=== PATIENT | female | born 1955 | race Caucasian/White ===

== ENCOUNTER 2020-04-08 07:11 | Outpatient (REF) | payer BC, SELFPAY | END 2020-04-08 07:12 | disposition home or self-care (01) | LOC: HO.LAB 07:11 | PROVIDERS: Visit Provider Internal Medicine | DX: Z20.828 Contact with and (suspected) exposure to other viral communicable diseases (principal) | CPT/HCPCS: C9803; U0003 ==

== ENCOUNTER 2020-10-15 09:51 | Day surgery (SDC) | payer BC, SELFPAY ==
[2020-10-10 14:04] VITALS: BMI 19.8
[2020-10-10 14:26] VITALS: BMI 19.8
--- NOTE | 2020-10-11 08:19 | HO.ANESPROP2 ---
HPI - Anesthesia Eval Consult details Narrative: 64yo F for Colonoscopy PMFSH Past Medical History Medical History Asthma COVID-19 vaccine administered Thyroid disease Surgical History Surgical History H/O colonoscopy Hx of laparoscopy Social History Social History Are you a primary customer care coordinator to a significant other at home: No Do you presently have visiting nurse or other home services: No Patient Tobacco Use Status: Never used Tobacco Use of substances other than those prescribed or required for medical reasons: No Have you been hit, kicked, punched, or otherwise hurt by someone within the past year? If so, by whom?: No Are you DNR?: No Advance Directives: Yes Advance Directives Information Provided: No Advance Directives on File: No (to bring 10/15) Advance Directives Date on File: 10/15/20 Recently lost weight without trying: No Nutrition Risks: Acute nausea or vomiting x1 week Poor oral hygiene: No Meds Allergies Allergy/AdvReac Type Severity Reaction Status Date / Time erythromycin base Allergy Severe severe Verified 10/15/20 10:01 [Erythromycin Base] stomach pain Penicillins Allergy Unknown childhood Verified 10/15/20 10:01 allergy-reaction unknown Home Medications Medication Instructions Recorded Confirmed Last Taken Type Caltrate 600 plus D 1 tab PO DAILY 10/10/20 10/10/20 Unknown History albuterol sulfate [Ventolin HFA] 2 puff INHALATION Q4-6H PRN 10/10/20 10/10/20 Unknown History ascorbic acid (vitamin C) [Vitamin 500 mg PO DAILY 10/10/20 10/10/20 Unknown History C] multivitamin 1 tab PO DAILY 10/10/20 10/10/20 Unknown History vitamin E 400 unit PO DAILY 10/10/20 10/10/20 Unknown History zinc 1 tab PO DAILY 10/10/20 10/10/20 Unknown History Exam Exam Date and Time: October 11, 202019 Height,Weight and Vital Signs: Height 5 ft 3 in Weight 50.802 kg Assessment and Plan Assessment Anesthesia Assessment: Chart Reviewed
[2020-10-15 10:09] VITALS: BP 131/76; PULSE 70; RESP 16; TEMP 36.5; O2SAT 99
[2020-10-15] MEDS: Lactated Ringers 1,000 ML 100 ML IVCONT (10:20)
--- NOTE | 2020-10-15 10:41 | HO.ANESPROP2 ---
[facility] Past Medical History Medical History Asthma COVID-19 vaccine administered Thyroid disease Surgical History Surgical History H/O colonoscopy Hx of laparoscopy Social History Social History Are you a primary janitor caretaker to a significant other at home: No Do you presently have visiting nurse or other home services: No Patient Tobacco Use Status: Never used Tobacco Use of substances other than those prescribed or required for medical reasons: No Have you been hit, kicked, punched, or otherwise hurt by someone within the past year? If so, by whom?: No Are you DNR?: No Advance Directives: Yes Advance Directives Information Provided: No Advance Directives on File: No (to bring 10/15) Advance Directives Date on File: 10/15/20 Recently lost weight without trying: No Nutrition Risks: Acute nausea or vomiting x1 week Poor oral hygiene: No Meds Allergies Allergy/AdvReac Type Severity Reaction Status Date / Time erythromycin base Allergy Severe severe Verified 10/15/20 10:01 [Erythromycin Base] stomach pain Penicillins Allergy Unknown childhood Verified 10/15/20 10:01 allergy-reaction unknown Active Medications: Current Medications Generic Name Dose Route Start Last Admin Trade Name Diane PRN Reason Stop Dose Admin Albuterol Sulfate 2.5 mg 10/15/20 09:52 Albuterol Sulfate (0.083%) 2.5 Mg/3 Ml Vial.Neb INHALE ONCE PRN Shortness of Breath/Wheezing Lactated Ringer's 1,000 mls @ 100 mls/hr 10/15/20 10:00 10/15/20 10:20 Lr IVCONT 100 mls/hr .Q10H SOHAN Administration Home Medications Medication Instructions Recorded Confirmed Last Taken Type albuterol sulfate [Ventolin HFA] 2 puff INHALATION Q4-6H PRN 10/10/20 10/10/20 Unknown History ascorbic acid (vitamin C) [Vitamin 500 mg PO DAILY 10/10/20 10/10/20 Unknown History C] calcium carbonate-vitamin D3 1 tab PO DAILY 10/10/20 10/10/20 Unknown History [Caltrate 600 plus D] multivitamin 1 tab PO DAILY 10/10/20 10/10/20 Unknown History vitamin E 400 unit PO DAILY 10/10/20 10/10/20 Unknown History zinc 1 tab PO DAILY 10/10/20 10/10/20 Unknown History Exam Exam Date and Time: October 15, 2020 1041 Height,Weight and Vital Signs: Height 5 ft 3 in Weight 50.802 kg Last Vital Signs Temp 97.7 F 10/15/20 10:09 Pulse 70 10/15/20 10:09 Resp 16 10/15/20 10:09 BP 131/76 10/15/20 10:09 Pulse Ox 99 10/15/20 10:09 Airway Mallampati Class: II TM Dist: >3cm Neck ROM: Full Loose/Missing/Broken Teeth: No Heart: RRR Lungs: CTA Assessment and Plan Assessment Anesthesia Assessment: Anesthesia Plan Discussed and Chart Reviewed Final Anesthetic Review NPO: Yes ASA Class: II Final Preanesthetic Review: Meds/Allgs Chart Reviewed, Consent Obtained/Reviewed and Anes Risks/Benef Reviewed Patient Risk: Low Procedure Risk: Low Anesthetic Plan Anesthetic Plan: MAC: Disposition: Standard PACU
--- NOTE | 2020-10-15 10:44 | P.HPSUR_ITS ---
Pre-Procedural Eval Section A Date of Service: 10/15/20 The patient is an INPATIENT: No Section B Chief Complaint: screening Details of Present Illness: see H&P no changes Relevant Social History: None Present Medications: see Short Stay Collaborative assessment Medical History: No relevant PMH History of Previous Operations: No relevant previous surgery Allergies: Allergies Allergy/AdvReac Type Severity Reaction Status Date / Time erythromycin base Allergy Severe severe Verified 10/15/20 10:01 [Erythromycin Base] stomach pain Penicillins Allergy Unknown childhood Verified 10/15/20 10:01 allergy-reaction unknown Review of Systems Sugical H&P ROS: Negative: Constitution, Cardiovascular, Respiratory, Neurological, Psychiatric, Hem-Onc, Allergic/Immunologic, Gastrointestinal, Gen itourinary, Musculoskeletal, Integumentary, Endocrine and Eyes/Ears/Nose/Throat Exam Surgical H&P Exam: Normal: HEENT, Normal: Heart, Normal: Lungs, Normal: Extremities, Normal: Abdomen, Normal: Skin and Normal: Neurological Plan Diagnosis/Plan: Unchanged I have reviewed the history and physical and performed a pertinent physical examination on my patient. No changes have occurred unless specified.
[2020-10-15 11:12] VITALS: BP 121/46; PULSE 61; RESP 16; TEMP 36.2; O2SAT 100
--- NOTE | 2020-10-15 11:19 | PM.OP ---
Brief Operative Note Date of Service: 10/15/20 Pre-op diagnosis: screening Post-op diagnosis: same (colon polyp) Procedure: colonosocpy Surgeon: Daniel Hawkins Anesthesia: MAC Was an Sales Enablement Analyst used for this Procedure?: No Estimated blood loss (mL): 0 Pathology: other (polyp x1) Condition: stable Disposition: PACU
[2020-10-15 11:27] VITALS: BP 124/50; PULSE 58; RESP 16; TEMP 36.2; O2SAT 100
--- NOTE | 2020-10-15 12:25 | OP_ITS ---
SURGEON: Daniel Hawkins MD INDICATIONS: Colon cancer screening. PREOPERATIVE DIAGNOSIS: POSTOPERATIVE DIAGNOSIS: PROCEDURE PERFORMED: Colonoscopy to the terminal ileum with snare polypectomy. ESTIMATED BLOOD LOSS: COMPLICATIONS: ANESTHESIA: ASSISTANTS: SPECIMENS: MEDICATIONS: Monitored anesthesia care. DESCRIPTION OF PROCEDURE: History and physical performed. The risks and benefits of the procedure were explained to the patient. Informed consent was obtained. The patient was placed in the left lateral decubitus position. A digital rectal exam was performed and was found to be normal. The Olympus pediatric video colonoscope was introduced into the rectum and advanced to the cecum without difficulty. The cecum was identified by transillumination, palpation, and identification of ileocecal valve. Examination was performed and the scope was removed. She tolerated the procedure well and was taken to recovery area in stable condition. FINDINGS: The terminal ileum was examined and appeared normal. The visualized colonic mucosa was normal. The quality of the prep was good. A single polyp measuring approximately 8 mm was identified and removed with a snare at 50 cm from the anal verge. No other polyps were identified. Retroflexed examination was normal. IMPRESSION: Colon polyp. RECOMMENDATION: Follow up the biopsy results. MD MARIE Ramos/FINA / [id number]
== END 2020-10-15 11:53 ==
LOC: HO.SSS 09:51
PROVIDERS: PCP Family Medicine; Visit Provider Internal Medicine Gastroenterology
PROC: 0DJD8ZZ Inspection of Lower Intestinal Tract, Via Natural or Artificial Opening Endoscopic (ICD-10-PCS; CPT 45378; principal; 2020-10-15 10:50)
DX: Z12.11 Encounter for screening for malignant neoplasm of colon (principal); K51.40 Inflammatory polyps of colon without complications; J45.909 Unspecified asthma, uncomplicated; E03.9 Hypothyroidism, unspecified; Z79.899 Other long term (current) drug therapy; Z88.0 Allergy status to penicillin
CPT/HCPCS: 45385; 88305

== ENCOUNTER 2025-02-26 13:30 | Outpatient (AMB) | payer MEDICARE, SELFPAY ==
--- NOTE | 2025-02-26 13:33 | MHC.PC.OV ---
Vital Signs 02/26/25 13:40 Height 5 ft 3.39 in Weight 113 lb 2 oz BMI 19.8 BP 114/76 Blood Pressure Location Lt brachial Position Sitting Pulse 71 Pulse Source Pulse Oximeter Temp 96.2 F L Temp Source Temporal Artery Scan Pulse Oximetry (%) 99 Oxygen Delivery Method Room Air Intake Visit Reasons: routine Accompanied by: Self / Same As Patient Allergies erythromycin base (Erythromycin Base) Allergy (Severe, Verified 02/26/25 13:40) severe stomach pain Penicillins Allergy (Unknown, Verified 02/26/25 13:40) childhood allergy-reaction unknown Medication List - Last Reconciled 02/26/25 by Julian Johnson MD albuterol sulfate 90 mcg/actuation (Ventolin HFA) 2 puffs inhalation Q4-6H PRN ascorbic acid (vitamin C) (Vitamin C) 500 mg PO DAILY calcium carbonate-vitamin D3 600 mg-20 mcg (800 unit) (Caltrate plus D) 1 tab PO DAILY multivitamin 1 tab PO DAILY vitamin E 400 units PO DAILY zinc 1 tab PO DAILY Tobacco use date assessed: 02/26/25 Fall risk assessment: No Falls in past year Last assessed Fall Risk: 02/26/25 Dental Screening Dental Screen Date: 02/26/25 Did you have a dental visit in the last 12 months?: Yes Was dental information given to patient?: Patient has dentist HPI HPI Comments History of Present Illness Details History of Present Illness The patient is a 69-year-old female presenting for a new patient visit and annual physical. She reports a history of asthma, for which she uses an inhaler on an as-needed basis, with the last use being in the spring or summer. 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 Past cholesterol testing in 2012 and 2008 showed high bad cholesterol levels that were out of range. The patient has previously declined blood pressure medication and expresses an aversion to statins due to concerns about side effects. Relevant surgical history includes a procedure for uterine fibroids over 30 years ago. The patient reports allergies to penicillin and erythromycin. For health maintenance, her last colonoscopy was in 2020, and she has had a recent Pap smear. She also reports having a bone density scan last year, though the results are not in the current system. She monitors her blood pressure at home, with recent readings noted to be very good. Medical History: - Asthma - History of hyperthyroidism, resolved for over 5 years - Known allergies to penicillin and erythromycin Surgical History: - Surgery for fibroids over 30 years ago Medications: - Asthma inhaler as needed - Vitamin C supplement - Calcium supplement - Multivitamin - Vitamin E supplement - Zinc supplement Family History: - Father's side: Congestive heart failure - Maternal aunt: History of heart issues requiring open-heart surgery for valve replacement/cleaning - Mother: at a young age from kidney disease - Denies family history of diabetes Diagnostic Results: - Home blood pressure log: Readings are reported to be excellent. - Labs (2012): Bad cholesterol was out of range. - Labs (2008): Cholesterol was checked. Social History - Tobacco use: Denies being a smoker, reports having tried it in the past. - Alcohol use: Drinks socially, about one glass of wine per week, but not every week. - Illicit substance use: Denies use of marijuana, heroin, and cocaine. - Employment: Retired from [employer] since May of last year. - Exercise: Reports being active; attends Pilates at a [employer], uses a treadmill, and is a walker. - Diet: Reports eating mostly chicken and pork, and avoids a lot of beef and foods with lard. [facility] Medical History (Updated 02/26/25 @ 14:29 by Julian Johnson MD) Hyperlipidemia Annual physical exam COVID-19 vaccine administered Thyroid disease Asthma Surgical History Hx of laparoscopy H/O colonoscopy (~10/15/20) Family History (Updated 02/26/25 @ 13:34 by Elis Aleman CMA) Mother No problems noted. Father No problems noted. Social History Housing: House Are you a primary career education teacher to a significant other at home: No Do you presently have visiting nurse or other home services: No Patient Tobacco Use Status: Never used Tobacco Advance Directives Date on File: 10/15/20 service: No Current occupational status: retired Cognitive needs: No Hearing needs: No Vision needs: Yes (glasses) Questionnaire PHQ-9 Over the last 2 weeks, how often have you been bothered by any of the following problems? 1. Little interest or pleasure in doing things: not at all 2. Feeling down, depressed, or hopeless: not at all 3. Trouble falling or staying asleep, or sleeping too much: not at all 4. Feeling tired or having little energy: not at all 5. Poor appetite or overeating: not at all 6. Feeling bad about yourself - or that you are a failure or have let yourself or your family down: not at all 7. Trouble concentrating on things, such as reading the newspaper or watching television: not at all 8. Moving or speaking so slowly that other people could have noticed. Or the opposite - being so fidgety or restless that you have been moving around a lot more than usual: not at all 9. Thoughts that you would be better off or of hurting yourself in some way: not at all Total score: 0 Depression Screening Interpretation: Negative Depression Screening Done: Yes 17465 - PHQ-9 Billing: Yes Source: Developed by Drs. Broderick Gupta, Josie Mixon, Chevy Wallace and colleagues, with an educational rosas from [employer]. Thrive Questionnaire Date Thrive assessed: 02/26/25 I am a: Patient What is your living situation today?: I have a steady place to live Within the past 12 months, did the food you bought not last and you didn't have the money to get more?: Never true Within the past 12 months, did you worry whether your food would run out before you got money to buy more?: Never true Do you have trouble paying for medicines?: No Do you have trouble getting transportation to medical appointments?: No Do you have trouble paying your heating and electricity bill?: No Do you have trouble taking care of your child, family member or friend?: No Do you have trouble with day-to-day activities such as bathing, preparing meals, shopping, managing finances, etc.?: No Are you currently unemployed and looking for a job?: No Are you interested in more education?: No THRIVE Score: 0 AUDIT C Alcohol Use Questionnaire (AUDIT-C) 1. How often do you have a drink containing alcohol?: 2-4 times a month 2. How many drinks containing alcohol do you have on a typical day when you are drinking?: 1 or 2 3. How often do you have six or more drinks on one occasion?: Never Total Score: 2 Score Reviewed/Action Taken: Yes KERWIN-7 AMB Questionnaire KERWIN-7 Date KERWIN - 7 assessed: 02/26/25 Feeling nervous, anxious, or on edge: 0 = Not at all Not being able to stop or control worryin = Not at all Worrying too much about different things: 0 = Not at all Trouble relaxin = Not at all Being so restless that it is hard to sit still: 0 = Not at all Becoming easily annoyed or irritable: 0 = Not at all Feeling afraid as if something awful might happen: 0 = Not at all Total KERWIN-7 score (0-4 normal; 5-9 mild; 10-14 moderate; 15-21 severe): 0 Source: Developed by Drs. Broderick Gupta, Josie Mixon, Chevy Wallace and colleagues, with an educational rosas from [employer]. KERWIN-7 Assessment Billing KERWIN-7 Assessment Tool: KERWIN-7 Assessment 65845 Review of Systems Narrative Review of Systems - Constitutional: Denies weight loss. - Respiratory: Reports a history of asthma. - Endocrine: Reports history of hyperthyroidism, now resolved. - Psychiatric: Denies depression or a history of anxiety disorder, but reports some situational anxiety related to a family member's hospitalization. All systems reviewed & are unremarkable except as reviewed in HPI and above Physical exam (Primary Care) Vital Signs: Last Vital Signs Temp 96.2 F L 02/26/25 13:40 Pulse 71 02/26/25 13:40 BP 114/76 02/26/25 13:40 Pulse Ox 99 02/26/25 13:40 Oxygen Delivery Method Room Air 02/26/25 13:40 BMI result Body Mass Index 19.8 Tobacco/Smoking Status: Tobacco use Status Tobacco use date assessed 02/26/25 02/26/25 13:35 Patient Tobacco Use Status Never used Tobacco 02/26/25 13:35 PHQ-9: PHQ-9 Score PHQ-9: Total score 0 02/26/25 13:58 Depression Screening Interpretation: Negative Thrive Assessment: Date of Thrive Assessment Date Thrive assessed 02/26/25 02/26/25 13:35 Narrative Physical Exam General: +Alert and oriented, Well nourished, No acute distress. Eye: Pupils are equal, round and reactive to light, Intact accommodation, Extraocular movements are intact, Normal conjunctiva, Vision unchanged. HENT: Normocephalic, Atraumatic, Tympanic membranes are clear, Normal hearing, Oral mucosa is moist, No pharyngeal erythema, Ear canals patent. Respiratory: Lungs CTA bilaterally, No wheeze, Respirations are non-labored. Cardiovascular: Regular rate, Regular rhythm, S1 auscultated, S2 auscultated, No murmur, Good pulses equal in all extremities, Normal peripheral perfusion, No edema. Gastrointestinal: Soft, Non-tender, Non-distended, Normal bowel sounds, No organomegaly. Musculoskeletal: Normal range of motion, Normal strength, No tenderness, No swelling, No deformity, Normal gait. Integumentary: Warm, Dry, [place], Intact. Neurologic: Alert, Oriented, Normal sensory, Normal motor function, No focal defects, Cranial Nerves II-XII are grossly intact, Normal deep tendon reflexes. Psychiatric: Cooperative, Appropriate mood & affect, Normal judgment. Office Procedures Flu Questionnaire Does the patient have a severe egg allergy?: No Does the patient have severe life threatening allergies?: No Does the patient have a fever or illness today?: No Has the patient ever had Guillain-Vermillion Syndrome?: No Has the patient ever had any past reaction to a flu shot?: No Immunizations Fluarix [id number] (PF) 45 mcg (15 mcg x 3)/0.5 mL IM syringe Performing Provider: Julian Johnson MD Performing Location: [facility] – [place] Adult Primary Care-[facility] Documented (not given) by: Elis Aleman CMA on 02/26/25 13:46 Reason Not Given: Patient Refused Coding Level of Care Code New Pt Level 3 (13171) New Pt Prev Care >65yr (80798) Diagnoses Mild intermittent asthma without complication J45.20 Asthma severity: mild Asthma persistence: intermittent Asthma complication type: uncomplicated Thyroid disease E07.9 Other hyperlipidemia E78.49 Hyperlipidemia type: other hyperlipidemia Annual physical exam Z00.00 Additional Codes KERWIN-7 Assessment Billing - KERWIN-7 Assessment Tool: KERWIN-7 Assessment 32335 ([id number]) PHQ-9 - 97598 - PHQ-9 Billing: Yes ([id number]) Comment [id number] Assessment & Plan Assessment & Plan (1) Asthma: Comment: - Her asthma appears to be well-controlled, with infrequent use of her rescue inhaler as needed. - She denies any nocturnal awakenings or significant symptoms. - The plan is to continue her current management with an as-needed inhaler. Code(s): J45.909 - Unspecified asthma, uncomplicated Category: Medical Qualifiers: Asthma severity: mild Asthma persistence: intermittent Asthma complication type: uncomplicated Qualified Code(s): J45.20 - Mild intermittent asthma, uncomplicated (2) Thyroid disease: Comment: - The patient has been off medication for over 5 years and was discharged from endocrinology. - Plan is to check thyroid studies as part of her baseline labs to ensure it remains in remission. Code(s): E07.9 - Disorder of thyroid, unspecified Category: Medical (3) Hyperlipidemia: Comment: - The patient has a history of high cholesterol on past labs from 2012 and a strong family history of heart disease. - She expresses apprehension about statins. - I discussed the risk/benefit profile of statins, including the significant reduction in heart attack and stroke risk. - I also reviewed newer statin options like rosuvastatin, which has fewer side effects. - The plan is to recheck her lipid panel and calculate her ASCVD risk score, then have a discussion about initiating statin therapy based on the results. Code(s): E78.5 - Hyperlipidemia, unspecified Category: Medical Qualifiers: Hyperlipidemia type: other hyperlipidemia Qualified Code(s): E78.49 - Other hyperlipidemia (4) Annual physical exam: Comment: - The patient is a 69-year-old female presenting for a new patient establishment and annual physical. - Given her family history of heart disease, close monitoring of cardiovascular risk factors is important. - Her blood pressure is well-controlled with lifestyle. - Plan is to order baseline labs including a CBC, electrolytes, diabetes screen, HIV screen, hepatitis panel, lipid panel, urinalysis, syphilis screen, thyroid function tests, and vitamin D level. - Will order a Cologuard test as an interval screening for colon cancer since her last colonoscopy was in 2020. - The patient confirms a recent bone density scan, so no new order is needed. - She is encouraged to continue her healthy lifestyle, including diet and exercise, and to get her COVID and flu shots. - Will have her follow up in 6 months. Code(s): Z00.00 - Encounter for general adult medical examination without abnormal findings Category: Medical Plan: Health Maintenance: - Annual physical exam conducted today. - Baseline labs ordered for screening, including CBC, electrolytes, diabetes, HIV, hepatitis, lipids, urinalysis, syphilis, thyroid, and vitamin D. - Colon cancer screening: Last colonoscopy was in 2020. An interval Cologuard test will be ordered. - Osteoporosis screening: Patient reports a bone density scan last year; will defer ordering a new one. - Cardiovascular risk reduction: Discussed the importance of blood pressure control and aggressive management of cholesterol given family history. - Immunizations: Recommended getting COVID and flu shots. - Healthy lifestyle: Patient encouraged to continue her current diet and exercise routine, which includes walking and Pilates. Patient was informed and verbally consented to the use of an ambient scribe for clinic note documentation during this visit. Vital signs reviewed. Comprehensive history, review of systems, and physical exam completed. Medications, allergies, and problem list reviewed and updated. Counseling provided on nutrition, regular exercise, sleep hygiene, and moderation of alcohol use. Discussed age-appropriate screenings (mammogram, colonoscopy, Pap, bone density) and immunizations (flu, COVID, shingles, Tdap). Screened for depression, fall risk, and home safety; no current concerns. Discussed stress management, dental and vision care, and importance of ongoing preventive follow-up. Routine labs ordered for metabolic and lipid screening. Patient educated on healthy lifestyle and agrees with the plan. Plan I discussed with the patient that we would treat this visit as a new patient establishment and annual physical. I explained the plan to order a comprehensive set of baseline labs, a Cologuard test for interval colon cancer screening, and to follow up in six months. We had a detailed discussion regarding cholesterol management, particularly her concerns about statin medications. I explained that the benefits of statins in preventing heart attacks and strokes significantly outweigh the risks, and I reviewed newer options like rosuvastatin that have fewer side effects. We agreed to await her new lab results and cardiovascular risk calculation before making a final decision, which she will ultimately make. Orders: Orders Influenza [id number] Immunization Today Z23 - Encounter for immunization Complete Blood Count Auto Diff Today Z00.00 - Encounter for general adult medical examination without abnormal findings HIV Ab/Ag Today Z00.00 - Encounter for general adult medical examination without abnormal findings TSH reflex Free T4 Today Z00.00 - Encounter for general adult medical examination without abnormal findings Comprehensive Met. Panel Today Z00.00 - Encounter for general adult medical examination without abnormal findings Hemoglobin A1c Today Z00.00 - Encounter for general adult medical examination without abnormal findings Hepatitis A,B,C Profile Today Z00.00 - Encounter for general adult medical examination without abnormal findings Lipid Panel Today Z00.00 - Encounter for general adult medical examination without abnormal findings Microalbumin, Random (w Creat) Today Z00.00 - Encounter for general adult medical examination without abnormal findings Syphilis Screen Today Z00.00 - Encounter for general adult medical examination without abnormal findings Vitamin D 25-OH Total Today Z00.00 - Encounter for general adult medical examination without abnormal findings Referrals Cologuard Test Z12.11 - Encounter for screening for malignant neoplasm of colon Patient Instructions: - Please go to the lab across the street from the hospital to have your blood drawn today; you do not need any paperwork. - Continue to monitor your blood pressure at home every week or two. - You will be sent a Cologuard kit, which is a stool test for colon cancer screening; please complete it and send it back. - Continue your healthy diet and stay active with exercise such as walking and Pilates. - Please get your COVID and flu shots. - We will call you if there are any abnormal results from your blood work. - Please schedule a follow-up appointment in six months.
[2025-02-26 13:40] VITALS: BP 114/76; PULSE 71; TEMP 35.7; O2SAT 99; BMI 19.8
== END 2025-02-26 14:14 | disposition home or self-care (01) ==
PROVIDERS: PCP Student in an Organized Health Care Education/Training Program; Visit Provider Student in an Organized Health Care Education/Training Program
DX: J45.20 Mild intermittent asthma, uncomplicated (principal); E07.9 Disorder of thyroid, unspecified; E78.49 Other hyperlipidemia; Z23 Encounter for immunization

== ENCOUNTER 2025-02-26 13:30 | Outpatient (REF) | payer MEDICARE, SELFPAY ==
[2025-02-26 14:43] LABS: MANUAL DIFF FLAG NO
[2025-02-26 15:04] LABS: Hematocrit 41.9 % (37.0-47.0); Hemoglobin 13.7 g/dl (12.0-16.0); Imm Gran Abs Auto 0.01 X10*3/uL (0.00-0.03); Imm Gran Pct Auto 0.2 % (0.0-0.4); Lymphocytes Absolute Auto 1.6 X10*3/uL (1.2-4.9); Mean Corpuscular HGB Conc 32.7 g/dl (31.0-35.0); Mean Corpuscular Hemoglobin 29.3 pg (27.0-33.0); Mean Corpuscular Volume 89.5 fL (80.0-98.0); NRBC Abs Auto 0.000 X10*3/uL (0.0-0.012); NRBC Pct Auto 0.0 /100WBC (0.0-0.2); Platelet Count 142 X10*3/uL (160-400); Red Blood Count 4.68 X10*6/uL (4.20-5.50); White Blood Count 5.2 X10*3/uL (4.8-10.8)
[2025-02-26 15:35] LABS: Alanine Aminotransferase 22 U/L (0-31); Albumin Level 4.2 g/dL (3.5-5.0); Alkaline Phosphatase 90 U/L (39-117); Anion Gap 11 (12-20); Aspartate Amino Transferase 30 U/L (5-31); Blood Urea Nitrogen 17 mg/dL (9-16); Calcium 9.5 mg/dL (8.4-10.2); Carbon Dioxide 27 mmol/L (22-29); Chloride 107 mmol/L (96-108); Cholesterol 187 mg/dL (<200); Estimated Glomerular Filt Rate > 60; HDL Cholesterol 60 mg/dL (>40); Potassium 4.5 mmol/L (3.3-5.1); Sodium 140 mmol/L (135-145); Total Protein 7.0 g/dL (6.5-8.0); Triglycerides 77 mg/dL (<150)
[2025-02-26 17:47] LABS: Free T4 (Free Thyroxine) 1.61 ng/dL (0.71-1.85)
[2025-02-27 07:54] LABS: HBS Num1 1.07 mIU/mL (0-7.99); HBc Num1 0.03 S/CO (0.00-0.79); HBsAGNum1 0.42 S/CO (0.00-0.99); HIV Num 1 0.08 S/CO (0.00-0.99); Hepatitis A Antibody IgM 0.21 Index (0-0.79); Hepatitis B Surface Antigen Negative (Negative); ~HepC Num1 0.09 S/CO (0.00-0.79); ~Hepatitis A Antibody IgM Nonreactive (Nonreactive); ~Hepatitis B Surface Antibody NONREACTIVE (Nonreactive); ~Hepatitis C Antibody Nonreactive (Nonreactive)
[2025-02-27 08:34] LABS: Syphilis Screen Nonreactive (Nonreactive)
== END 2025-02-26 13:31 | disposition home or self-care (01) ==
LOC: HO.LAB 13:30
PROVIDERS: PCP Student in an Organized Health Care Education/Training Program; Visit Provider Student in an Organized Health Care Education/Training Program
DX: Z00.00 Encounter for general adult medical examination without abnormal findings (principal); J45.20 Mild intermittent asthma, uncomplicated; E07.9 Disorder of thyroid, unspecified; E78.49 Other hyperlipidemia; Z13.31 Encounter for screening for depression; Z13.39 Encounter for screening examination for other mental health and behavioral disorders; Z13.1 Encounter for screening for diabetes mellitus
CPT/HCPCS: 36415; 80053; 80061; 82043; 82306; 82570; 83036; 84439; 84443; 85025; 86704; 86706; 86709; 86780; 86803; 87340; 87389; 96127; 99202